=== PATIENT | male | born 1960 | race Caucasian/White ===

== ENCOUNTER 2021-07-29 03:06 | Emergency (ER) | payer OTHER ==
[~2021-07-29 03:06] MED LIST: APIDRA100 UNIT/1 SC; ASPIRIN EC81 MG PO; FENOFIBRATE160 MG PO; IMDUR ER TAB 3030 MG PO; IMDUR ER TAB 6060 MG PO; KRILL OIL 3001 EACH PO; LANTUS100 UNIT/1 SC; LIPITOR20 MG PO; LOPRESSOR 25 MG25 MG PO; NITROSTAT0.4 MG SL; NORVASC5 MG PO; NOVOLOG100 UNIT/1 SQ; OMEPRAZOLE20 MG PO; PLAVIX75 MG PO; PRINIVIL5 MG PO; PROTONIX 40 MG40 M1 PO; TOPROL XL25 MG PO; TRESIBA FL100 UNIT/1 SC; VITAMIN D31000 UNI1 PO; WELLBUTRIN SR150 M1 PO
[2021-07-29 03:34] LABS: HEMOGLOBIN 9.9 gm/dl (14.0-17.5); RED BLOOD COUNT 3.47 M/UL (4.20-5.50); WHITE BLOOD COUNT 8.7 K/UL (4.5-11.0)
[2021-07-29 03:56] LABS: BUN/CREATININE RATIO 31 (0-10)
== END 2021-07-29 09:15 | disposition left against medical advice (07) ==
LOC: ER1 03:06
PROVIDERS: Family Medicine
DX: U07.1 COVID-19 (principal); J12.82 Pneumonia due to coronavirus disease 2019; E11.9 Type 2 diabetes mellitus without complications; E78.5 Hyperlipidemia, unspecified; K21.9 Gastro-esophageal reflux disease without esophagitis; Z88.0 Allergy status to penicillin
CPT/HCPCS: 36600; 51702; 71045; 80053; 81001; 82550; 82553; 82803; 83605; 83880; 84484; 85025; 87040; 93005; 94664; 99283; Q9967

== ENCOUNTER 2021-09-19 16:49 | Emergency (ER) | payer OTHER ==
[2021-09-19 17:23] LABS: HEMOGLOBIN 8.7 gm/dl (14.0-17.5); RED BLOOD COUNT 2.97 M/UL (4.20-5.50); WHITE BLOOD COUNT 8.9 K/UL (4.5-11.0)
[2021-09-19 18:07] LABS: BUN/CREATININE RATIO 44 (0-10)
== END 2021-09-19 23:15 | disposition short-term general hospital (02) ==
LOC: ER1 16:49
PROVIDERS: Emergency Medicine
DX: H54.7 Unspecified visual loss (principal); H57.89 Other specified disorders of eye and adnexa; E11.9 Type 2 diabetes mellitus without complications; Z88.0 Allergy status to penicillin
CPT/HCPCS: 70450; 71045; 80053; 82550; 82553; 82962; 84484; 85025; 85610; 85652; 85730; 86140; 93005; 96374; 96375; 99285; J1170; J2765; J7030

== ENCOUNTER 2021-09-28 10:16 | Inpatient (IN) | payer OTHER ==
[~2021-09-28] VITALS: Ht 182.9 cm; Wt 117.0 kg
[~2021-09-28 10:16] MED LIST changes: +ASPIRIN EC81 MG GT; -ASPIRIN EC81 MG PO; -LIPITOR20 MG PO; +LIPITOR40 MG GT; +LISINOPRIL2.5 MG GT; +LOPRESSOR50 MG GT; +NOVOLOG FL100 UNIT/1 SQ; -NOVOLOG100 UNIT/1 SQ; -PRINIVIL5 MG PO; -TOPROL XL25 MG PO
[2021-09-28 10:59] LABS: HEMOGLOBIN 9.1 gm/dl (14.0-17.5); RED BLOOD COUNT 3.16 M/UL (4.20-5.50); WHITE BLOOD COUNT 11.6 K/UL (4.5-11.0)
[2021-09-28 11:58] LABS: BUN/CREATININE RATIO 53 (0-10)
[2021-09-28] MEDS ORDERED: HYDROCODON-ACE1 EAC6 GT (14:50)
[2021-09-28] MEDS ORDERED: ELIQUIS5 MG GT (14:51)
[2021-09-28] MEDS ORDERED: LEXAPRO20 MG GT (14:51)
[2021-09-28] MEDS ORDERED: ALBUTEROL1.25 MG/3 INH (14:51)
[2021-09-28] MEDS ORDERED: CYMBALTA60 MG GT (14:51)
[2021-09-28] MEDS ORDERED: FAMOTIDINE40 MG/5 ML GT (14:54)
[2021-09-28] MEDS ORDERED: FERROUS SU220 MG/5 M GT (14:55)
[2021-09-28] MEDS ORDERED: FLONASE 0.05% N16 GM INH (14:55)
[2021-09-28] MEDS ORDERED: GABAPENTIN600 MG GT (14:55)
[2021-09-28] MEDS ORDERED: MIRALAX 119 GR119 GM GT (14:56)
[2021-09-28] MEDS ORDERED: METOCLOPRAM5 MG/5 M1 GT (14:56)
[2021-09-28] MEDS ORDERED: IPRAT-ALBUT 0.5-3 ML INH (14:56)
[2021-09-28] MEDS ORDERED: CVS SENNA PLUS1 EACH GT (14:57)
[2021-09-28] MEDS ORDERED: PROMETHAZINE12.5 M1 GT (14:57)
[2021-09-28] MEDS ORDERED: GAS RELIEF40 MG/0.6 GT (14:58)
[2021-09-28] MEDS ORDERED: BENTYL 20MG TAB20 MG GT (14:58)
[2021-09-28] MEDS ORDERED: LEVEMIR FL100 UNIT/1 SQ (14:58)
[2021-09-29 05:39] LABS: BUN/CREATININE RATIO 53 (0-10)
[2021-09-29 05:43] LABS: HEMOGLOBIN 8.4 gm/dl (14.0-17.5); RED BLOOD COUNT 2.87 M/UL (4.20-5.50)
[2021-09-29 06:40] LABS: WHITE BLOOD COUNT 26.9 K/UL (4.5-11.0)
[2021-09-30 07:02] LABS: BUN/CREATININE RATIO 76 (0-10)
[2021-09-30 08:23] LABS: RED BLOOD COUNT 2.14 M/UL (4.20-5.50)
[2021-09-30 08:24] LABS: WHITE BLOOD COUNT 10.9 K/UL (4.5-11.0)
[2021-09-30 15:29] LABS: HEMOGLOBIN 7.2 gm/dl (14.0-17.5)
[2021-09-30 19:47] LABS: HEMOGLOBIN 7.2 gm/dl (14.0-17.5)
[2021-10-01 04:31] LABS: HEMOGLOBIN 7.6 gm/dl (14.0-17.5); WHITE BLOOD COUNT 13.4 K/UL (4.5-11.0)
[2021-10-01 04:47] LABS: BUN/CREATININE RATIO 64 (0-10)
[2021-10-01 04:56] LABS: RED BLOOD COUNT 2.61 M/UL (4.20-5.50)
[2021-10-02 05:18] LABS: HEMOGLOBIN 7.6 gm/dl (14.0-17.5); RED BLOOD COUNT 2.64 M/UL (4.20-5.50); WHITE BLOOD COUNT 11.4 K/UL (4.5-11.0)
[2021-10-02 06:57] LABS: BUN/CREATININE RATIO 70 (0-10)
[2021-10-03 05:15] LABS: HEMOGLOBIN 8.1 gm/dl (14.0-17.5); RED BLOOD COUNT 2.82 M/UL (4.20-5.50)
[2021-10-03 05:19] LABS: WHITE BLOOD COUNT 16.3 K/UL (4.5-11.0)
[2021-10-03 05:37] LABS: BUN/CREATININE RATIO 62 (0-10)
[2021-10-04 05:20] LABS: RED BLOOD COUNT 2.83 M/UL (4.20-5.50); WHITE BLOOD COUNT 14.8 K/UL (4.5-11.0)
[2021-10-04 06:05] LABS: BUN/CREATININE RATIO 60 (0-10)
[2021-10-05 05:14] LABS: HEMOGLOBIN 7.5 gm/dl (14.0-17.5); RED BLOOD COUNT 2.63 M/UL (4.20-5.50); WHITE BLOOD COUNT 15.5 K/UL (4.5-11.0)
[2021-10-05 05:46] LABS: BUN/CREATININE RATIO 61 (0-10)
[2021-10-06 04:38] LABS: HEMOGLOBIN 8.1 gm/dl (14.0-17.5); RED BLOOD COUNT 2.86 M/UL (4.20-5.50); WHITE BLOOD COUNT 17.9 K/UL (4.5-11.0)
[2021-10-06 05:05] LABS: BUN/CREATININE RATIO 56 (0-10)
[2021-10-07 05:01] LABS: HEMOGLOBIN 7.7 gm/dl (14.0-17.5); RED BLOOD COUNT 2.75 M/UL (4.20-5.50); WHITE BLOOD COUNT 17.2 K/UL (4.5-11.0)
[2021-10-07 05:23] LABS: BUN/CREATININE RATIO 51 (0-10)
[2021-10-08 00:11] LABS: CANDIDA ALBICANS Not Detected (Negative); CANDIDA KRUSEI Not Detected (Negative); CANDIDA TROPICALIS Not Detected (Negative); ESCHERICHIA COLI Not Detected (Negative); HAEMOPHILUS INFLUENZAE Not Detected (Negative); KLEBSIELLA OXYTOCA Not Detected (Negative); KLEBSIELLA PNEUMONIAE Not Detected (Negative); KPC-CARBAPENEM-RESISTANCE GENE Not Detected (Negative); PROTEUS Not Detected (Negative); PSEUDOMONAS AERUGINOSA Not Detected (Negative); SERRATIA MARCESANS Not Detected (Negative); STAPHYLOCOCCUS Not Detected (Negative); STAPHYLOCOCCUS AUREUS Not Detected (Negative); STREP AGALACTIAE (GROUP B) Not Detected (Negative); STREP PYOGENES (GROUP A) Not Detected (Negative); STREPTOCOCCUS Not Detected (Negative); vanA/B (VANCOMYCIN RESIST GENE Not Detected (Negative)
[2021-10-08 05:23] LABS: BUN/CREATININE RATIO 44 (0-10)
[2021-10-08 07:20] LABS: RED BLOOD COUNT 2.52 M/UL (4.20-5.50); WHITE BLOOD COUNT 14.9 K/UL (4.5-11.0)
[2021-10-08 11:22] LABS: HEMOGLOBIN 7.5 gm/dl (14.0-17.5); RED BLOOD COUNT 2.64 M/UL (4.20-5.50)
[2021-10-09 05:15] LABS: RED BLOOD COUNT 2.34 M/UL (4.20-5.50); WHITE BLOOD COUNT 9.8 K/UL (4.5-11.0)
[2021-10-09 05:16] LABS: HEMOGLOBIN 6.7 gm/dl (14.0-17.5)
[2021-10-09 05:57] LABS: BUN/CREATININE RATIO 46 (0-10)
[2021-10-09 06:13] LABS: HEMOGLOBIN 6.5 gm/dl (14.0-17.5)
[2021-10-09 18:40] LABS: HEMOGLOBIN 7.1 gm/dl (14.0-17.5); RED BLOOD COUNT 2.57 M/UL (4.20-5.50); WHITE BLOOD COUNT 9.3 K/UL (4.5-11.0)
[2021-10-10 05:20] LABS: HEMOGLOBIN 7.7 gm/dl (14.0-17.5); RED BLOOD COUNT 2.84 M/UL (4.20-5.50); WHITE BLOOD COUNT 8.6 K/UL (4.5-11.0)
[2021-10-10 07:38] LABS: BUN/CREATININE RATIO 45 (0-10)
[2021-10-11 05:27] LABS: HEMOGLOBIN 7.6 gm/dl (14.0-17.5); RED BLOOD COUNT 2.74 M/UL (4.20-5.50); WHITE BLOOD COUNT 7.7 K/UL (4.5-11.0)
[2021-10-11 05:36] LABS: BUN/CREATININE RATIO 42 (0-10)
[2021-10-12 05:12] LABS: HEMOGLOBIN 7.7 gm/dl (14.0-17.5); RED BLOOD COUNT 2.81 M/UL (4.20-5.50); WHITE BLOOD COUNT 6.5 K/UL (4.5-11.0)
[2021-10-12 05:28] LABS: BUN/CREATININE RATIO 43 (0-10)
[2021-10-13 05:59] LABS: HEMOGLOBIN 7.5 gm/dl (14.0-17.5); RED BLOOD COUNT 2.72 M/UL (4.20-5.50); WHITE BLOOD COUNT 6.2 K/UL (4.5-11.0)
[2021-10-13 06:19] LABS: BUN/CREATININE RATIO 43 (0-10)
[2021-10-14 05:55] LABS: HEMOGLOBIN 7.3 gm/dl (14.0-17.5); RED BLOOD COUNT 2.73 M/UL (4.20-5.50); WHITE BLOOD COUNT 5.9 K/UL (4.5-11.0)
[2021-10-14 06:20] LABS: BUN/CREATININE RATIO 48 (0-10)
[2021-10-15 05:51] LABS: HEMOGLOBIN 7.2 gm/dl (14.0-17.5); RED BLOOD COUNT 2.66 M/UL (4.20-5.50); WHITE BLOOD COUNT 6.4 K/UL (4.5-11.0)
[2021-10-15 06:05] LABS: BUN/CREATININE RATIO 58 (0-10)
[2021-10-16 05:07] LABS: HEMOGLOBIN 7.5 gm/dl (14.0-17.5); RED BLOOD COUNT 2.73 M/UL (4.20-5.50); WHITE BLOOD COUNT 7.6 K/UL (4.5-11.0)
[2021-10-16 05:52] LABS: BUN/CREATININE RATIO 61 (0-10)
[2021-10-17 05:25] LABS: HEMOGLOBIN 7.8 gm/dl (14.0-17.5); RED BLOOD COUNT 2.81 M/UL (4.20-5.50); WHITE BLOOD COUNT 6.9 K/UL (4.5-11.0)
[2021-10-17 05:54] LABS: BUN/CREATININE RATIO 72 (0-10)
[2021-10-18 06:30] LABS: HEMOGLOBIN 8.5 gm/dl (14.0-17.5)
[2021-10-18 06:45] LABS: RED BLOOD COUNT 3.12 M/UL (4.20-5.50)
[2021-10-18 06:47] LABS: BUN/CREATININE RATIO 75 (0-10)
[2021-10-19 05:36] LABS: HEMOGLOBIN 8.5 gm/dl (14.0-17.5); RED BLOOD COUNT 3.11 M/UL (4.20-5.50); WHITE BLOOD COUNT 6.2 K/UL (4.5-11.0)
[2021-10-19 05:55] LABS: BUN/CREATININE RATIO 62 (0-10)
[2021-10-19 16:33] LABS: ADENOVIRUS F 40/41 Not Detected (Negative); ASTROVIRUS Not Detected (Negative); CAMPYLOBACTER Not Detected (Negative); CRYPTOSPORIDIUM Not Detected (Negative); E.COLI 0157 Not Detected (Negative); ENTAMOEBA HISTOLYTICA Not Detected (Negative); ENTEROAGGREGATIVE E.COLI (EAEC Not Detected (Negative); ENTEROPATHOGENIC E.COLI (EPEC) Not Detected (Negative); ENTEROTOXIGENIC E.COLI (ETEC) Not Detected (Negative); GIARDIA LAMBLIA Not Detected (Negative); NOROVIRUS GI/GII Not Detected (Negative); PLESIOMONAS SHIGELLOIDES Not Detected (Negative); ROTOVIRUS A Not Detected (Negative); SALMONELLA Not Detected (Negative); SAPOVIRUS Not Detected (Negative); SHIG/ENTEROINVAS.ECOLI (EIEC) Not Detected (Negative); SHIGA-LIK TOX.PRO.E.COLI (STEC Not Detected (Negative); VIBRIO Not Detected (Negative); VIBRIO CHOLERAE Not Detected (Negative); YERSINIA ENTEROCOLITICA Not Detected (Negative)
[2021-10-20 15:18] LABS: BUN/CREATININE RATIO 45 (0-10)
[2021-10-21 04:23] LABS: RED BLOOD COUNT 2.98 M/UL (4.20-5.50); WHITE BLOOD COUNT 5.9 K/UL (4.5-11.0)
[2021-10-21 04:42] LABS: BUN/CREATININE RATIO 49 (0-10)
--- NOTE | 2021-10-21 10:00 | NUR ---
0900 - DR CAMARILLO ORDERED NT SUCTIONING. ANGELIKA ROSA NOTIFIED OF ORDER AND CAME TO BEDSIDE TO NT SUCTION. NURSES AT BEDSIDE. COPIOUS AND THICK SECRETIONS REMOVED FROM [employer]. ORAL CARE DONE. DR CAMARILLO NOTIFIED OF SECRETIONS.
[2021-10-22 04:12] LABS: HEMOGLOBIN 8.7 gm/dl (14.0-17.5); RED BLOOD COUNT 3.26 M/UL (4.20-5.50)
[2021-10-22 04:13] LABS: WHITE BLOOD COUNT 8.3 K/UL (4.5-11.0)
[2021-10-22 04:25] LABS: BUN/CREATININE RATIO 46 (0-10)
[2021-10-23 03:34] LABS: HEMOGLOBIN 8.1 gm/dl (14.0-17.5); RED BLOOD COUNT 2.98 M/UL (4.20-5.50); WHITE BLOOD COUNT 8.3 K/UL (4.5-11.0)
[2021-10-23 03:58] LABS: BUN/CREATININE RATIO 49 (0-10)
[2021-10-24 04:44] LABS: RED BLOOD COUNT 2.89 M/UL (4.20-5.50); WHITE BLOOD COUNT 7.4 K/UL (4.5-11.0)
[2021-10-24 05:09] LABS: BUN/CREATININE RATIO 56 (0-10)
[2021-10-25 05:16] LABS: RED BLOOD COUNT 3.37 M/UL (4.20-5.50); WHITE BLOOD COUNT 10.6 K/UL (4.5-11.0)
[2021-10-25 05:33] LABS: BUN/CREATININE RATIO 56 (0-10)
[2021-10-26 13:30] LABS: CANDIDA ALBICANS Not Detected (Negative); CANDIDA KRUSEI Not Detected (Negative); CANDIDA TROPICALIS Not Detected (Negative); ESCHERICHIA COLI Not Detected (Negative); HAEMOPHILUS INFLUENZAE Not Detected (Negative); KLEBSIELLA OXYTOCA Not Detected (Negative); KLEBSIELLA PNEUMONIAE Not Detected (Negative); KPC-CARBAPENEM-RESISTANCE GENE Not Detected (Negative); PROTEUS Not Detected (Negative); PSEUDOMONAS AERUGINOSA Not Detected (Negative); SERRATIA MARCESANS Not Detected (Negative); STAPHYLOCOCCUS AUREUS Not Detected (Negative); STREP AGALACTIAE (GROUP B) Not Detected (Negative); STREP PYOGENES (GROUP A) Not Detected (Negative); STREPTOCOCCUS Not Detected (Negative); vanA/B (VANCOMYCIN RESIST GENE Not Detected (Negative)
[2021-10-26 14:52] LABS: STAPHYLOCOCCUS DETECTED (Negative)
== END 2021-10-25 22:42 | disposition expired | DRG 870 ==
LOC: ER1 10:16 → CDU 12:05 → CCU 12:05
PROVIDERS: Emergency Medicine; Internal Medicine; Internal Medicine Critical Care Medicine; Internal Medicine Pulmonary Disease; Physician Assistant; ADMIT Internal Medicine
PROC: 0BH17EZ Insertion of Endotracheal Airway into Trachea, Via Natural or Artificial Opening (ICD-10-PCS; principal; 2021-09-28)
PROC: 5A1955Z Respiratory Ventilation, Greater than 96 Consecutive Hours (ICD-10-PCS; 2021-09-28)
PROC: 3E043XZ Introduction of Vasopressor into Central Vein, Percutaneous Approach (ICD-10-PCS; 2021-09-28)
PROC: 3E03329 Introduction of Other Anti-infective into Peripheral Vein, Percutaneous Approach (ICD-10-PCS; 2021-09-28)
PROC: 02HV33Z Insertion of Infusion Device into Superior Vena Cava, Percutaneous Approach (ICD-10-PCS; 2021-09-28)
PROC: B548ZZA Ultrasonography of Superior Vena Cava, Guidance (ICD-10-PCS; 2021-09-28)
PROC: 03HY32Z Insertion of Monitoring Device into Upper Artery, Percutaneous Approach (ICD-10-PCS; 2021-09-28)
PROC: 4A133B1 Monitoring of Arterial Pressure, Peripheral, Percutaneous Approach (ICD-10-PCS; 2021-09-28)
PROC: 4A133J1 Monitoring of Arterial Pulse, Peripheral, Percutaneous Approach (ICD-10-PCS; 2021-09-28)
PROC: 02HV33Z Insertion of Infusion Device into Superior Vena Cava, Percutaneous Approach (ICD-10-PCS; 2021-09-28)
PROC: B548ZZA Ultrasonography of Superior Vena Cava, Guidance (ICD-10-PCS; 2021-09-28)
PROC: 0B9M8ZX Drainage of Bilateral Lungs, Via Natural or Artificial Opening Endoscopic, Diagnostic (ICD-10-PCS; 2021-09-29)
PROC: B24BZZZ Ultrasonography of Heart with Aorta (ICD-10-PCS; 2021-10-03)
PROC: 0B9J8ZX Drainage of Left Lower Lung Lobe, Via Natural or Artificial Opening Endoscopic, Diagnostic (ICD-10-PCS; 2021-10-05)
PROC: 0BDB8ZX Extraction of Left Lower Lobe Bronchus, Via Natural or Artificial Opening Endoscopic, Diagnostic (ICD-10-PCS; 2021-10-05)
PROC: 0B9M8ZZ Drainage of Bilateral Lungs, Via Natural or Artificial Opening Endoscopic (ICD-10-PCS; 2021-10-05)
PROC: 0B968ZZ Drainage of Right Lower Lobe Bronchus, Via Natural or Artificial Opening Endoscopic (ICD-10-PCS; 2021-10-05)
PROC: 0B948ZZ Drainage of Right Upper Lobe Bronchus, Via Natural or Artificial Opening Endoscopic (ICD-10-PCS; 2021-10-05)
PROC: 0B978ZZ Drainage of Left Main Bronchus, Via Natural or Artificial Opening Endoscopic (ICD-10-PCS; 2021-10-05)
PROC: 02PYX3Z Removal of Infusion Device from Great Vessel, External Approach (ICD-10-PCS; 2021-10-10)
PROC: 02HV33Z Insertion of Infusion Device into Superior Vena Cava, Percutaneous Approach (ICD-10-PCS; 2021-10-10)
PROC: B548ZZA Ultrasonography of Superior Vena Cava, Guidance (ICD-10-PCS; 2021-10-10)
PROC: B24BZZZ Ultrasonography of Heart with Aorta (ICD-10-PCS; 2021-10-10)
PROC: 5A09457 Assistance with Respiratory Ventilation, 24-96 Consecutive Hours, Continuous Positive Airway Pressure (ICD-10-PCS; 2021-10-14)
PROC: 5A09357 Assistance with Respiratory Ventilation, Less than 24 Consecutive Hours, Continuous Positive Airway Pressure (ICD-10-PCS; 2021-10-17)
PROC: 5A09357 Assistance with Respiratory Ventilation, Less than 24 Consecutive Hours, Continuous Positive Airway Pressure (ICD-10-PCS; 2021-10-25)
DX: B37.7 Candidal sepsis (principal); J69.0 Pneumonitis due to inhalation of food and vomit; L89.154 Pressure ulcer of sacral region, stage 4; Z20.822 Contact with and (suspected) exposure to COVID-19; R65.21 Severe sepsis with septic shock; G93.41 Metabolic encephalopathy; J15.6 Pneumonia due to other Gram-negative bacteria; K72.00 Acute and subacute hepatic failure without coma; J80 Acute respiratory distress syndrome; E43 Unspecified severe protein-calorie malnutrition; Z16.12 Extended spectrum beta lactamase (ESBL) resistance; N30.00 Acute cystitis without hematuria; N17.9 Acute kidney failure, unspecified; E87.0 Hyperosmolality and hypernatremia; B37.1 Pulmonary candidiasis; R65.20 Severe sepsis without septic shock; I25.10 Atherosclerotic heart disease of native coronary artery without angina pectoris; B96.89 Other specified bacterial agents as the cause of diseases classified elsewhere; G89.29 Other chronic pain; B96.4 Proteus (mirabilis) (morganii) as the cause of diseases classified elsewhere; R13.12 Dysphagia, oropharyngeal phase; J44.9 Chronic obstructive pulmonary disease, unspecified; H54.8 Legal blindness, as defined in USA; H40.9 Unspecified glaucoma; I48.0 Paroxysmal atrial fibrillation; R74.01 Elevation of levels of liver transaminase levels; E78.5 Hyperlipidemia, unspecified; F32.A Depression, unspecified; E87.8 Other disorders of electrolyte and fluid balance, not elsewhere classified; E66.9 Obesity, unspecified; M54.9 Dorsalgia, unspecified; L89.816 Pressure-induced deep tissue damage of head; J38.00 Paralysis of vocal cords and larynx, unspecified; L89.620 Pressure ulcer of left heel, unstageable; I07.1 Rheumatic tricuspid insufficiency; I27.20 Pulmonary hypertension, unspecified; R53.81 Other malaise; E11.65 Type 2 diabetes mellitus with hyperglycemia; F41.9 Anxiety disorder, unspecified; Z95.5 Presence of coronary angioplasty implant and graft; Z98.1 Arthrodesis status; Z87.01 Personal history of pneumonia (recurrent); Z93.0 Tracheostomy status; Z93.1 Gastrostomy status; Z79.01 Long term (current) use of anticoagulants; Z99.81 Dependence on supplemental oxygen; Z88.0 Allergy status to penicillin; Z87.891 Personal history of nicotine dependence; Z80.3 Family history of malignant neoplasm of breast; Z74.01 Bed confinement status
CPT/HCPCS: ECHO; 0240U; 31500; 36415; 36430; 36600; 70450; 70551; 71045; 71250; 72141; 74022; 80048; 80053; 80076; 80202; 81001; 82270; 82550; 82553; 82607; 82728; 82803; 82962; 83605; 83690; 83735; 83880; 84100; 84132; 84439; 84443; 84484; 85014; 85018; 85025; 85027; 85379; 85384; 85610; 85652; 85730; 86140; 86850; 86900; 86901; 86920; 87015; 87040; 87070; 87077; 87081; 87086; 87116; 87150; 87186; 87205; 87206; 87252; 87449; 87507; 92526; 92610; 93005; 93306; 93970; 94002; 94003; 94640; 94660; 94664; 94667; 94668; 94760; 95819; 97110; 97110-GP-CQ; 97161; 97167; 99285; A6212; C9113; J0690; J1205; J1644; J1650; J1720; J1940; J1956; J2060; J2185; J2248; J2250; J2270; J2310; J2370; J2543; J2704; J3010; J3243; J3370; J7030; J7040; J7050; J7070; P9016; P9047